=== PATIENT | male | born 1995 | race Caucasian/White ===

== ENCOUNTER 2017-11-13 20:12 | Emergency (ER) | payer BC ==
[~2017-11-13] VITALS: Ht 195.6 cm; Wt 203.4 kg
[2017-11-13 20:14] VITALS: BP 160/90
[2017-11-13] MEDS ORDERED: MORPHINE SULFATE 2 MG/ML SYR ONE (21:24)
[2017-11-13] MEDS ORDERED: MORPHINE SULFATE 4 MG/ML SYR ONE (21:24)
[2017-11-13] MEDS: KETOROLAC 60 MG/2 ML VIAL IM ONE (21:36)
[2017-11-13] MEDS: MORPHINE SULFATE 10 MG/ML SYR IM ONE (21:37)
[2017-11-13 23:22] VITALS: BP 149/93
== END 2017-11-13 23:22 | disposition home or self-care (01) ==
LOC: EDBD 20:12 → MED 20:12
DX: M54.6 Pain in thoracic spine (principal); I10 Essential (primary) hypertension
CPT/HCPCS: 82948; 96372; 99284; J1885; J2270